=== PATIENT | female | born 1955 | race Caucasian/White ===

== ENCOUNTER 2016-10-31 10:44 | Inpatient (IN) | payer OTHER ==
[~2016-10-31] VITALS: Ht 162.6 cm; Wt 86.0 kg
--- NOTE | ~2016-10-31 | HP ---
Unit #: [id number] #: [id number] Patient: ASHLEY KONG [id number] [facility] [address] [place], [place] [address] [id number] MR#: [id number] NAME: ASHLEY KONG ROOM: [id number] Age: 61 Sex: F Admission Date: 10/31/2016 : 1955 Attending Physician: Mary Grace Shi M.D. Primary Care Physician: Amanda Randolph M.D. HISTORY AND PHYSICAL REASON FOR ADMISSION Chest pain, unstable angina. HISTORY OF PRESENT ILLNESS The patient is a 61-year-old white female who was seen by Dr. Howe in the past for history of CABG x4 in 2010, hypertension, hyperlipidemia, diabetes, tobacco abuse and QUESADA. The patient presented to the [facility] ED on 10/31/16 at 10:44 a.m. with complaints of chest pain. The patient states that she was at the grocery store walking around doing some grocery shopping when she began to feel a fluttering sensation in her chest. She had left-sided jaw pain, left arm heaviness, sharp and pressure-like left-sided chest pressure, nausea, shortness of breath and lightheadedness. The patient states that she had a similar episode like this a few months before her bypass surgery. The patient states that she had a stress test in 2012 or 2013 here, although those results are not seen in the computer. She also had a heart cath at [facility] in 2011. Those records are unavailable at this time, as well. PAST MEDICAL HISTORY 1. Coronary artery disease status post CABG x4 in 2010, where she states that one of her bypass grafts has failed. 2. Hypertension. 3. Hyperlipidemia. 4. Diabetes. 5. Tobacco abuse. 6. QUESADA. PAST SURGICAL HISTORY Bypass in 2010 x4. SOCIAL HISTORY The patient is a smoker of 10 cigarettes per day, but at most, she did smoke 2 packs per day x14 years. No alcohol abuse or illicit drug abuse. FAMILY HISTORY Father of a massive RI at the age of 54. Her siblings are unknown family history, and she does not know of any coronary artery disease in her mother. ALLERGIES Codeine and mag citrate. Unit #: [id number] #: [id number] Patient: ASHLEY KONG HOME MEDICATIONS 1. Amitriptyline 25 mg p.o. daily. 2. Prilosec 40 mg p.o. daily. 3. Vitamin C 250 mg p.o. b.i.d. 4. Vitamin D3 - 1,000 units p.o. daily. 5. Senna 50 mg p.o. t.i.d. 6. Ranexa 1,000 mg p.o. daily. 7. Pravastatin 40 mg p.o. daily. 8. Cozaar 25 mg p.o. daily. 9. Fortamet 500 mg p.o. daily. 10. Zanaflex 8 mg p.o. daily. 11. Aspirin 325 mg p.o. daily. 12. Nitrostat 0.4 mg q.5 minutes as needed for chest pain. REVIEW OF SYSTEMS A 10-point review of systems is negative except for what is listed above in the HPI. PHYSICAL EXAMINATION GENERAL: This is a 61-year-old white female who is alert and oriented x3 in no apparent distress. VITAL SIGNS: Blood pressure 149/82, temp 98.7, pulse 69, respirations 15. HEENT: Pupils are equal, round and reactive. Oral mucosa is moist. NECK: No JVD. No thyromegaly. No lymphadenopathy. No carotid bruits. HEART: S1, S2. No S3, S4. No clicks. No rubs. No murmurs. LUNGS: Clear. ABDOMEN: Soft. Bowel sounds positive. Nontender, nondistended. EXTREMITIES: No swelling. NEUROLOGIC: No neuro deficits noted. DIAGNOSTIC STUDIES LABORATORY STUDIES: Troponin less than 0.05 and less than 0.05. White count 8.2, hemoglobin 11.8, hematocrit 37.7, platelets 129. INR 1. Sodium 136, potassium 4.3, chloride 105, CO2 25, glucose 92, BUN 22, creatinine 0.9, AST 21, ALT 14, alkaline phosphatase 72. IMPRESSION 1. Chest pain. 2. Coronary artery disease status post CABG in 2010. 3. Hypertension. 4. Hyperlipidemia. 5. Diabetes. 6. Tobacco abuse. PLAN Discussed with Dr. Shi about the patient's history, as well as the symptoms with which she presented, and he wants to proceed with cardiac cath tomorrow. The patient will be given a Plavix load. She will be started on a heparin drip and low dose baby aspirin, as well as Lipitor high dose. The patient is to have a left heart cath with Dr. Campbell at 8 a.m. in the morning. The risks and benefits were discussed. The patient verbalized understanding and is agreeable to proceed. Counselled the patient on the need to quit smoking. The patient verbalized understanding. At this time she has denied needing a nicotine patch during her stay here. Will trend troponins every [address] parameters[address] Will check A1C and lipid profile in the morning. Further recommendations pending lab results, as well as heart cath results tomorrow. Unit #: [id number] #: [id number] Patient: ASHLEY KONG Dictated by Alondra Chiu APRN for Reyes Chacon TD: 10/31/2016 16:08 JOB #: [id number] HISTORY AND PHYSICAL Page 1 of 1 X X HISTORY AND PHYSICAL
--- NOTE | ~2016-10-31 | EKG ---
PATIENT: ASHLEY KONG UNIT #: [id number] Ventricular Rate: 56 BPM Atrial Rate: 56 BPM P-R Interval: 180 ms QRS Duration: 92 ms Q-T Interval: 468 ms QTC Calculation(Bezet): 451 ms P Lula: 5 degrees Calculated R Lula: 33 degrees Calculated T Lula: 31 degrees Diagnosis Line: Sinus bradycardia with sinus arrhythmia Diagnosis Line: Otherwise normal ECG Diagnosis Line: When compared with ECG of 31-OCT-2016 12:03, Diagnosis Line: (unconfirmed) Diagnosis Line: No significant change was found Diagnosis Line: Confirmed by HARINI SAUL MD ([id number]) on Diagnosis Line: 11/01/2016 5:09:33 PM INTERPRETING MD: DORYS ROCHE
--- NOTE | ~2016-10-31 | CR72 ---
[facility] A Service of [facility] RADIOLOGY TEXT RESULTS PATIENT: ASHLEY KONG LOCATION: [facility] [address] : [birth year] UNIT #: [id number] AGE: [address]: MONTSE MACIAS MD SEX: F ORDER DR: [id number] [facility] [address] [facility] [address]. [place], [place] [address] [id number] I MR#: [id number] Acc #: [id number] NAME: ASHLEY KONG : 1955 SEX: F STUDY DATE/TIME: 10/31/2016 12:09 UNIT: [facility] ROOM: [id number] STUDY DESCRIPTION: CR Chest Single View Portable Attending Physician: Montse Macias M.D. Ordering Physician: Terence Coughlin M.D. Primary Care Physician: Amanda Randolph M.D. MEDICAL IMAGING REPORT This report is preliminary unless electronic signature is present EXAM AP portable chest. Date: 10/31/2069 HISTORY Chest pain and shortness of breath with left arm pain since yesterday. History of cervical cancer. Previous history smoking. COMPARISON PA lateral chest radiograph 01/09/2014. FINDINGS No acute airspace disease is seen. Heart size is within normal limits, allowing for patient rotation toward the left. Median sternotomy changes are present. The sixth and seventh sternotomy wires appear broken, but the remainder of the sternal wires appear intact. The seventh sternotomy wire fracture is not thought to be significantly changed from the 01/09/2014 exam. No pleural effusion. No pneumothorax. No acute osseous abnormality. IMPRESSION 1. No acute chest findings. 2. Fractures of the sixth and seventh median sternotomy wires, with the seventh wire fractured and unchanged from the 2013 examination. Dictated by... Lucia Pfeiffer M.D. THIS IS AN ELECTRONICALLY VERIFIED REPORT Lucia Pfeiffer M.D. at 11/01/2016 7:08 AM LLH/gz [facility] A Service of [facility] RADIOLOGY TEXT RESULTS PATIENT: ASHLEY KONG LOCATION: [facility] 575-01 : [birth year] UNIT #: [id number] AGE: [address]: MONTSE MACIAS MD SEX: F ORDER DR: TD: 10/31/2016 15:42 JOB #: [id number] MEDICAL IMAGING REPORT Page 1 of 1 COPY
--- NOTE | ~2016-10-31 | DS ---
Unit #: [id number] #: [id number] Patient: ASHLEY KONG [id number] [facility]. [place], [place] [address] [id number] I MR#: [id number] NAME: ASHLEY KONG ROOM: 575 Age: 61 Sex: F Admission Date: 10/31/2016 : 1955 Discharge Date: 11/02/2016 Attending Physician: Mary Grace Shi M.D. Primary Care Physician: Amanda Randolph M.D. DISCHARGE SUMMARY DISCHARGE DIAGNOSES 1. Unstable angina. 2. Status post cardiac catheterization, 11/01/2016, per Dr. Campbell at [facility], which revealed left main normal, left anterior descending mid 100%, left circumflex obtuse marginal 100%, right coronary artery proximal 100%, left internal mammary to left anterior descending patent, saphenous vein graft to obtuse marginal patent, saphenous vein graft to right coronary artery 100% and ejection fraction 60%. Medical management recommended. 3. Status post coronary artery bypass in 2010. 4. Hypertension. 5. Hyperlipidemia. 6. Diabetes mellitus. 7. Tobacco abuse. DISCHARGE MEDICATIONS 1. Amitriptyline 25 mg p.o. daily. 2. Metformin 500 mg p.o. daily. 3. Amlodipine 10 mg p.o. daily. 4. Lopressor 12.5 mg p.o. twice a day. 5. Senokot 50 mg p.o. three times a day. 6. Pravastatin 40 mg p.o. daily. 7. Losartan K 50 mg p.o. daily. 8. Aspirin 81 mg p.o. daily. 9. Ranexa 500 mg p.o. twice a day. 10. Prilosec 40 mg p.o. daily. 11. Zanaflex 8 mg p.o. daily. 12. Nitroglycerin tabs sublingual 0.4 mg p.o. as needed for chest pain every five minutes x3. 13. Vitamin C 250 mg p.o. twice a day. 14. Vitamin D3 1,000 units p.o. once a day. HOSPITAL COURSE This is a 61-year-old female who is a patient of Dr. Howe with a past history of CABG x4 in 2010, hypertension, hyperlipidemia, diabetes, QUESADA and tobacco abuse. She presented to [facility] ER on 10/31/2016 with complaints of chest pain. She described it as left-sided chest pressure radiating into her left jaw with left arm heaviness, nausea, lightheadedness and shortness of breath. The pain occurred while she was walking in the grocery store, reported the episode occurred in the past before her CABG. Her troponins and EKG were negative for ischemia. It was decided to proceed with a cardiac cath. On 11/02/2016, she underwent cardiac cath per Dr. Campbell. Findings as noted above. It was decided to treat her medically. She is currently Unit #: [id number] #: [id number] Patient: ASHLEY KONG chest pain free. She is stable for discharge home. We will discharge her today. She will be continued on her home dose of statin, aspirin, beta grady. Her Ranexa will be increased to twice a day. Her right groin is feeling well without hematoma. There is no bruit noted. Post cath instructions were given to the patient and she verbalized understanding. She was educated on smoking cessation. ASSESSMENT VITAL SIGNS: Blood pressure 126/66. Heart rate 61. Respiratory rate 16. Temp 98.1. CHEST: Clear and diminished in bases. HEART: S1, S2. Regular rate and rhythm. ABDOMEN: Soft, nontender, nondistended. EXTREMITIES: Pulses palpable. DP and PT 2+. Right groin soft and dry with no hematoma. No edema. DIAGNOSTIC STUDIES LABORATORY: Sodium 139, potassium 4.4, chloride 108, BUN 22, creatinine 0.8, glucose 94. Hemoglobin 10.3, hematocrit 33.1, WBC count 6.1, platelets 113. CARDIOVASCULAR: Sinus rhythm with occasional PAC on the monitor. DISCHARGE INSTRUCTIONS 1. The patient will be discharged home today to follow up with Dr. Howe in four to six weeks. 2. Post cath instructions given to patient at discharge. 3. Cardiac rehab consult. 4. Encourage smoking cessation. 5. Medications per medication reconciliation. 6. Prescriptions given to patient. Dictated by... Kylah Minaya APRN for Mary Grace Shi M.D. Zev TD: 11/03/2016 12:53 JOB #: [id number] DISCHARGE SUMMARY Page 1 of 1 X X DISCHARGE SUMMARY
--- NOTE | ~2016-10-31 | EKG ---
PATIENT: ASHLEY KONG UNIT #: [id number] Ventricular Rate: 64 BPM Atrial Rate: 64 BPM P-R Interval: 192 ms QRS Duration: 82 ms Q-T Interval: 430 ms QTC Calculation(Bezet): 443 ms P [place]: 62 degrees Calculated R [place]: 9 degrees Calculated T [place]: 55 degrees Diagnosis Line: Normal sinus rhythm Diagnosis Line: Low voltage QRS Diagnosis Line: Cannot rule out Anterior infarct (cited on or Diagnosis Line: before 19-NOV-2014) Diagnosis Line: Abnormal ECG Diagnosis Line: When compared with ECG of 19-NOV-2014 03:35, Diagnosis Line: No significant change was found Diagnosis Line: Confirmed by HARINI SAUL MD ([id number]) on Diagnosis Line: 11/01/2016 5:04:53 PM INTERPRETING MD: DORYS ROCHE
[~2016-10-31 10:44] MED LIST: AMITRIPTYLINE H25 MG PO; AMLODIPINE BESYL5 MG PO; ASPIR-TRIN325 MG PO; BAYER ASPIRIN325 M1 PO; COZAAR25 MG PO; FERRO-TIME325 MG PO; FLEXERIL10 MG PO; HYDROCODONE/APA1 T16 PO; KCL PO; LASIX PO; LASIX20 MG PO; LORTAB 10-5001 EACH PO; LOSARTAN POTASS25 MG PO; METFORMIN HCL500 M4; NITROGLYCERIN0.4 MG SL; OMEPRAZOLE40 M1 PO; PRAVACHOL PO; PRAVASTATIN SOD40 MG PO; PRILOSEC20 M1 PO; PROAIR HFA8.5 GM INH; RANEXA500 MG PO; RENEXA; SENNA S TABLET1 TAB; SYMBICORT INH; TIZANIDINE HCL4 M1 PO; VITAMIN C PO; VITAMIN D31000 UNIT PO
[2016-10-31 11:46] LABS: BASOPHIL% 0.4 % (0-2.5); EOSINOPHIL# 0.1 X10e3 (0-0.7); HEMATOCRIT 37.7 % (35.0-45.0); HEMOGLOBIN 11.8 gm/dL (12.0-16.0); LYMPHOCYTE# 1.7 X10e3 (1.0-3.5); LYMPHOCYTE% 20.3 % (17.0-45.0); MEAN CELL VOLUME 71.4 FL (83-96); MEAN CORPUSCULAR HEMOGLOBIN 22.4 PG (28-34); MEAN CORPUSCULAR HGB CONC 31.3 g/dL (30-36); MEAN PLATELET VOLUME 9.6 FL (6.5-11.5); MONOCYTE# 0.4 X10e3 (0-1.0); NEUTROPHIL% 73.3 % (40-75); PLATELET COUNT 129 X10e3 (140-420); RED BLOOD COUNT 5.28 X10e (3.90-5.30); RED CELL DISTRIBUTION WIDTH 19.7 % (11.0-15.5); WHITE BLOOD COUNT 8.2 X10e3 (4.0-10.5)
[2016-10-31 11:50] LABS: DIFF IND NO
[2016-10-31 11:58] LABS: PARTIAL THROMBOPLASTIN TIME 27.8 SECONDS (23.5-31.3)
[2016-10-31 12:01] LABS: POC - CKMB <1.0 ng/mL (0.0-7.9); POC - TROPONIN <0.05 ng/mL (<=0.05)
[2016-10-31 12:11] LABS: ALBUMIN SERUM 4.2 g/dL (3.5-5.0); BILIRUBIN, DIRECT 0.1 mg/dL (0.0-0.2); BILIRUBIN,INDIRECT 0.2 mg/dL (0.0-0.9); BILIRUBIN,TOTAL 0.3 mg/dL (0.2-2.0); BUN/CREATININE RATIO 24.44; CALCIUM SERUM 9.2 mg/dL (8.4-10.2); CREATININE SERUM 0.9 mg/dL (0.6-1.4); POTASSIUM 4.3 mmol/L (3.5-5.1); PROTEIN TOTAL SERUM 7.5 g/dL (6.0-8.3)
[2016-10-31] MEDS ORDERED: PRAVASTATIN SOD40 MG PO (14:19)
[2016-10-31] MEDS ORDERED: RANEXA500 MG PO (14:19)
[2016-10-31] MEDS ORDERED: ZANAFLEX PO (14:20)
[2016-10-31] MEDS ORDERED: FORTAMET500 MG PO (14:20)
[2016-10-31] MEDS ORDERED: AMITRIPTYLINE H25 MG PO (14:20)
[2016-10-31] MEDS ORDERED: PRILOSEC PO (14:20)
[2016-10-31] MEDS ORDERED: COZAAR25 MG PO (14:20)
[2016-10-31] MEDS ORDERED: VITAMIN D31000 UNIT PO (14:21)
[2016-10-31] MEDS ORDERED: SENNA-S TABLET1 EAC1 PO (14:21)
[2016-10-31] MEDS ORDERED: VITAMIN C250 M1 PO (14:21)
[2016-10-31] MEDS ORDERED: ASPIR-TRIN325 MG PO (14:22)
[2016-10-31] MEDS ORDERED: NITROSTAT0.4 MG PO (14:22)
[2016-10-31 14:57] LABS: POC - CKMB <1.0 ng/mL (0.0-7.9); POC - TROPONIN <0.05 ng/mL (<=0.05)
[2016-10-31 20:30] LABS: CK TOTAL 36 IU/L (26-140)
[2016-10-31 22:37] LABS: PROTHROMBIN TIME (PATIENT) 11.2 SECONDS (10.0-11.7)
[2016-10-31 22:38] LABS: PARTIAL THROMBOPLASTIN TIME 42.9 SECONDS (23.5-31.3)
[2016-11-01 02:02] LABS: CK TOTAL 37 IU/L (26-140)
[2016-11-01 05:58] LABS: HEMATOCRIT 34.1 % (35.0-45.0); HEMOGLOBIN 10.7 gm/dL (12.0-16.0); MEAN CELL VOLUME 70.9 FL (83-96); MEAN CORPUSCULAR HEMOGLOBIN 22.2 PG (28-34); MEAN CORPUSCULAR HGB CONC 31.3 g/dL (30-36); MEAN PLATELET VOLUME 9.1 FL (6.5-11.5); RED BLOOD COUNT 4.81 X10e (3.90-5.30); RED CELL DISTRIBUTION WIDTH 19.2 % (11.0-15.5)
[2016-11-01 06:11] LABS: INR 1.1; PARTIAL THROMBOPLASTIN TIME 61.7 SECONDS (23.5-31.3); PROTHROMBIN TIME (PATIENT) 11.4 SECONDS (10.0-11.7)
[2016-11-01 06:44] LABS: CALCIUM SERUM 8.7 mg/dL (8.4-10.2); CREATININE SERUM 0.8 mg/dL (0.6-1.4); GLOM FILT RATE Estimated 80.8 mL/min (>60); MAGNESIUM 1.7 mg/dL (1.6-3.0); POTASSIUM 3.9 mmol/L (3.5-5.1)
[2016-11-01 07:22] LABS: CK TOTAL 35 IU/L (26-140)
[2016-11-02 05:32] LABS: HEMATOCRIT 33.1 % (35.0-45.0); HEMOGLOBIN 10.3 gm/dL (12.0-16.0); MEAN CELL VOLUME 71.3 FL (83-96); MEAN CORPUSCULAR HEMOGLOBIN 22.2 PG (28-34); MEAN CORPUSCULAR HGB CONC 31.1 g/dL (30-36); MEAN PLATELET VOLUME 9.4 FL (6.5-11.5); RED BLOOD COUNT 4.64 X10e (3.90-5.30); RED CELL DISTRIBUTION WIDTH 19.1 % (11.0-15.5); WHITE BLOOD COUNT 6.1 X10e3 (4.0-10.5)
[2016-11-02 06:01] LABS: BUN/CREATININE RATIO 27.5; CALCIUM SERUM 8.7 mg/dL (8.4-10.2); CREATININE SERUM 0.8 mg/dL (0.6-1.4); GLOM FILT RATE Estimated 80.8 mL/min (>60); POTASSIUM 4.4 mmol/L (3.5-5.1)
[2016-11-02] MEDS ORDERED: BAYER CHEWABLE81 MG PO (09:58)
[2016-11-02] MEDS ORDERED: LOSARTAN POTASS50 MG PO (10:07)
[2016-11-02] MEDS ORDERED: RANEXA500 MG PO (10:10)
[2016-11-02] MEDS ORDERED: NORVASC10 MG PO (10:12)
[2016-11-02] MEDS ORDERED: LOPRESSOR PO (10:13)
== END 2016-11-02 11:13 | disposition home or self-care (01) | DRG 287 ==
LOC: CED 10:44 → C5C 15:04 → CED 15:04 → C5C 15:04 → CEDOF 15:04 → C5C 15:28 → CEDOF 15:28 → CED 15:28 → C5C 20:54 → CEDOF 20:54 → C5C 20:54
PROVIDERS: Emergency Medicine; Internal Medicine Cardiovascular Disease; Internal Medicine Interventional Cardiology
PROC: 4A023N7 Measurement of Cardiac Sampling and Pressure, Left Heart, Percutaneous Approach (ICD-10-PCS; principal; 2016-11-01)
PROC: B211YZZ Fluoroscopy of Multiple Coronary Arteries using Other Contrast (ICD-10-PCS; 2016-11-01)
PROC: B215YZZ Fluoroscopy of Left Heart using Other Contrast (ICD-10-PCS; 2016-11-01)
DX: I25.110 Atherosclerotic heart disease of native coronary artery with unstable angina pectoris (principal); T82.898A Other specified complication of vascular prosthetic devices, implants and grafts, initial encounter; K75.81 Nonalcoholic steatohepatitis (NASH); E78.5 Hyperlipidemia, unspecified; I10 Essential (primary) hypertension; E11.9 Type 2 diabetes mellitus without complications; F17.210 Nicotine dependence, cigarettes, uncomplicated; Z71.6 Tobacco abuse counseling
CPT/HCPCS: 36415; 71010; 80048; 80061; 80076; 82550; 82553; 82947; 83036; 83735; 84484; 85025; 85027; 85610; 85730; 93005; 94760; 99285; C1760; C1769; C1887; J1644; J2250; J3010